=== PATIENT | male | born 1960 | race Caucasian/White ===

== ENCOUNTER → 2016-09-01 11:32 | Day surgery (SDC) | payer OTHER ==
--- NOTE | 2016-08-25 17:16 | HP ---
PREOPERATIVE HISTORY AND PHYSICAL: DATE OF ADMISSION/ SURGERY: 09/01/16 PROCEDURE: Right shoulder arthroscopic decompression and debridement, excision distal clavicle, possible tenotomy versus tenodesis. CHIEF COMPLAINT: Right shoulder pain. HISTORY OF PRESENT ILLNESS: Mr. Moncada is a 55-year-old right hand dominant male who presents to the clinic with right shoulder pain after a work-related injury in February. Since that time he has had ongoing right shoulder pain due to AC joint arthritis and impingement syndrome and biceps tendinitis. He has failed conservative measures and therefore agreed to undergo a right shoulder arthroscopic decompression, debridement, excision distal clavicle and possible tenotomy versus tenodesis. Thus, he will be seen on 09/01/16. PAST MEDICAL HISTORY: 1. Hypertension. 2. Hyperlipidemia. 3. Sleep apnea. 4. Gout. 5. Kidney stones. PAST SURGICAL HISTORY: Hernia repair and appendectomy. The patient denies prior complications with anesthesia. MEDICATIONS: 1. Aspirin 81 mg 1 by mouth daily. 2. Colchicine 0.6 mg 1 by mouth daily. 3. Multivitamin 1 by mouth daily. 4. Glucosamine and chondroitin 1500 complex, 2 by mouth every day. 5. Aleve 220 mg as needed. 6. New blood pressure medication, name unknown by patient. ALLERGIES: PENICILLIN. FAMILY HISTORY: Mom has a history of AMI. Denies family history of DVT or PE. SOCIAL HISTORY: He is . He denies tobacco use. He reports occasional alcohol use. He denies illegal drug use. He works in service management. REVIEW OF SYSTEMS: A 14-point review of systems was reviewed with the patient and positive for recent cold, pain, intermittent numbness and tingling in the right hand, otherwise negative. Denies chest pain, shortness of breath, history of bleeding disorder, history of DVT or PE. PHYSICAL EXAMINATION GENERAL: Well-developed, well-nourished 55-year-old male in no acute distress. VITAL SIGNS: Height 71.5, weight 280. Blood pressure 150/98, respiratory rate 16, temperature 98.5. BMI 38.5. HEENT: Normocephalic, atraumatic. PERRLA. Throat: Clear NECK: Supple. PULMONARY: Lungs clear to auscultation bilaterally. No wheezing, rhonchi or rales. CARDIO: Regular rate and rhythm. S1, S2. No murmurs, gallops or rubs. No edema. ABDOMEN: Positive bowel sounds. Soft and nontender. MUSCULOSKELETAL: Right upper extremity skin is intact. No erythema or warmth. Tenderness to palpation over the AC joint in the bicipital groove. Forward flexion to 140, abduction to 130, external rotation to 60, internal rotation to the posterior hip. Good strength to rotator cuff testing but with pain. Positive Neer, [place] and [place] and Speed's. +2 radial pulse. Sensation is intact to light touch distally. NEUROLOGIC: Alert and oriented x3. Cranial nerves grossly intact. Sensation intact to light touch distally. DIAGNOSTIC STUDIES: X-ray and MRI revealed no full thickness tear of the rotator cuff but he does have AC joint arthritis and evidence of biceps tendinitis filled with fluid in the groove and mild degenerative joint disease. IMPRESSION: Right shoulder AC joint arthritis, impingement syndrome and biceps tendinitis. PLAN: The patient is scheduled to undergo a right shoulder arthroscopic decompression and debridement, excision distal clavicle and possible tenotomy versus tenodesis with Dr. Goyal on 09/01/16. He is to return to the office 10 to 14 days postop for followup and suture removal. Prescription for Percocet will be used for postoperative pain management. NINO EWING [id number]/[facility] #: [id number] MTDJhonny
[~2016-09-01 11:32] MED LIST: Atracurium* 10 MG/ML 10 ML VIAL ONE; Buffered Lidocaine 1% SYRIN* 3 ML/SYR SYRINGE INTRADERM ONE; Bupivacaine 0.25% SDV* 30 ML ONE; Clindamycin 900 MG IVPREMIX(* 900 MG/50 ML SDV IV ONE; Dexamethasone IV* 4 MG/ML 1 ML (4 MG) ONE; Famotidine IV* 10 MG/ML 2 ML (20 mg) IV ONE; Famotidine IV* 10 MG/ML 2 ML (20 mg) ONE; HYDROmorphone* 1 MG/ML 1 ML SYR IV PRN; HYDROmorphone* 1 MG/ML 1 ML SYR ONE; KETAMINE HCL* 50 MG/ML 10 ML VIAL ONE; Ketorolac INJ* 30 MG/ML 1 ML VIAL ONE; Labetalol IV* 5 MG/ML 20 ML VIAL ONE; Lidocaine 2% PF* 5 ML VIAL ONE; Metoclopramide TAB* 10 MG ONE; Metoclopramide TAB* 10 MG PO ONE; Midazolam* 1 MG/ML 2 ML VIAL (2 MG) ONE; Midazolam* 1 MG/ML 5 ML VIAL (5 MG) ONE; Ondansetron INJ* 2 MG/ML VIAL IV PRN; Ondansetron INJ* 2 MG/ML VIAL ONE; Propofol* 10 MG/ML 20 ML BTL IV PUSH ONE; ROPIVACAINE 5 MG/ML 30 ML BTL (0.5%) ONE; fentaNYL* 50 MCG/ML 2 ML VIAL (100 MCG VIAL) IV PRN; fentaNYL* 50 MCG/ML 5 ML VIAL (250 MCG VIAL) ONE; methylPREDNISolone ACETATE 80* 80 MG/ML 1 ML VIAL ONE; oxyCODONE/Acetamin 5/325 MG* TAB PO PRN
[2016-09-01 19:33] VITALS: BP 148/84
--- NOTE | 2016-09-06 03:40 | OP ---
DATE OF OPERATION: 09/01/16 - [facility] DATE OF : 62 SURGEON: Bipin Goyal MD HOME HEALTH TRAVEL OT: NINO Nath ANESTHESIOLOGIST: Dr. Butler. ANESTHESIA: General with interscalene block. PRE-OP DIAGNOSES: Right shoulder impingement, AC joint arthritis, and biceps tendonitis. POST-OP DIAGNOSES: Right shoulder impingement, AC joint arthritis, and biceps tendonitis. OPERATIVE PROCEDURE: 1. Right shoulder arthroscopy with extensive glenohumeral debridement including biceps tenotomy and debridement of the labrum. 2. Subacromial decompression with acromioplasty. 3. Distal clavicle excision. 4. Depo-Medrol injection. COMPLICATIONS: None. ESTIMATED BLOOD LOSS: Minimal. INDICATIONS: Seven Hardy is a 56-year-old male who sustained a work-related injury to his right shoulder in February of 2016. He has failed conservative management. He has tried anti-inflammatories, an injection as well as rest and has persistent pain. His previous AC joint injection did not help enough with the pain. He has elected to proceed with operative management. Risks and benefits of surgery were discussed at length and including, but are not limited to bleeding, infection, damage to nerves, vessels, surrounding structures, wound nonhealing, persistent pain, need for further surgery, scarring, stiffness , incomplete relief of symptoms, risk of anesthesia, and risk of DVT. She has elected to proceed. DESCRIPTION OF PROCEDURE: The patient was greeted in the preoperative area by the attending surgeon. The correct extremity was marked, consent was confirmed. The patient then underwent interscalene block by the anesthesiologist, which he tolerated without difficulty. The patient was then taken back to the operating suite where he was placed supine position on the operating table. He then underwent general anesthesia and endotracheal intubation after which the patient was placed in the left lateral decubitus position with an axillary roll. All bony prominences were padded and he was supported with a peg board. His right arm was draped unsterile from the traction frame. The right shoulder was prepped and draped in the usual sterile fashion beginning with chlorhexidine scrub and alcohol wipe and the final prep with a ChloraPrep. After appropriate surgical pause indicating site, side, procedure, and administration of antibiotics, the standard posterolateral portal was made sharply with an 11 blade. The scope was introduced through the joint and the joint was examined. There was abundant erythematous hyperemic tissue apparent. The superior labrum had evidence of detachment. The biceps had tendinopathy as well as tendonitis and it was irritating undersurface of the rotator cuff. The anterior portal was made in an outside-in fashion. The shaver was brought in to debride the anterior posterior and superior labrum as well as some of the rotator cuff, which was probed and found to be quite thick. There were no high- grade tears. The biceps was then tenotomized using arthroscopic scissors. The inferior recess was intact. The anterior posterior labrum were intact. There were grade 1 changes of the glenoid in the humeral head. After the debridement was complete, attention was directed to the subacromial space. The scope was positioned in the subacromial space. The lateral portal was made in a outside-in fashion. The abundant bursa was then carefully removed using the shaving device. Once this was removed, the cup was visualized and found to be intact. The undersurface of the acromion was then prepared and skeletonized using the electrocautery device, which demonstrated a small to moderate spur. This was then debrided back using the 4-0 luc which helped to then identify where the AC joint was. From this lateral portal, the inferior spur was then debrided back to level of about 8 mm. Once the decompression and acromioplasty was complete, the attention was directed to distal clavicle. The luc was then placed to the anterior portal in line with the AC joint. This was first localized using an 18 gauge needle, then with direct arthroscopic observation and distal clavicle excision was done to remove approximately 8 mm of the bone from distal clavicle. Care was taken not to damage the CC ligaments. The clavicle was then manipulated and it was found no longer to pinch or impinge. All loose debris and tissue were removed from the subacromial space. An 18-gauge needle was then placed in the subacromial space under arthroscopic visualization. The portal sites were closed with 3-0 nylon and prior to dressings being placed, an 80 mg of Depo-Medrol and 5 cc of Marcaine were injected into the subacromial space. Sterile dressings were applied. A Cryo/Cuff and a regular sling. He was awoken from anesthesia and transferred to the PACU in stable condition. POSTOPERATIVE PLAN: He will be nonweightbearing. He will do range of motion as tolerated. He will be discharged with pain medication. DVT prophylaxis considered, but deferred due to no previous personal or family history. I will see the patient back in 10 to 14 days. [id number]/[facility] #: [id number] MTDD
== END | disposition home or self-care (01) ==
LOC: OR 11:32
PROVIDERS: ATTEND Orthopaedic Surgery
DX: M75.41 Impingement syndrome of right shoulder (principal); M19.011 Primary osteoarthritis, right shoulder; M75.21 Bicipital tendinitis, right shoulder; Z79.82 Long term (current) use of aspirin; Z88.0 Allergy status to penicillin; I10 Essential (primary) hypertension; G47.33 Obstructive sleep apnea (adult) (pediatric); E78.5 Hyperlipidemia, unspecified; M10.9 Gout, unspecified; G89.29 Other chronic pain; S49.91XS Unspecified injury of right shoulder and upper arm, sequela; X58.XXXS Exposure to other specified factors, sequela; Y92.89 Other specified places as the place of occurrence of the external cause; Y99.0 Civilian activity done for income or pay
CPT/HCPCS: A9270-GY; J1040; J1100; J1170; J1885; J2250; J2405; J2704; J2795; J3010

== ENCOUNTER 2017-06-20 14:03 | Emergency (ER) | payer BC, OTHER ==
--- NOTE | 2017-06-20 16:16 | UC ---
Ear Complaint HPI - HPI Summary HPI Summary: 56 y/o male presents to the urgent care c/o Left ear plugged with cerumen, decrease hearing for the past for the past weeks. Pt reports He developed a neck pain around 1 week ago and then radiated to his left shoulder and arm. He was unable to raise left arm due to pain, He went to PCP today and Dx with Neck arthritis and he advised him to go to DR Bartlett's office or the Urgent care to have ear irrigation to r/o any ear infection. Pt denies pain, fever, cough, SOB , chest pain, N/V/D, abdominal pain or dizziness. - History of Current Complaint Stated Complaint: EAR COMPLAINT Time Seen by Provider: 06/20/17 16:15 Hx Obtained From: Patient Onset/Duration: Gradual Onset, Lasting Weeks - 2 weeks, Still Present, Worse Since - yesterday Severity Initially: Mild Severity Currently: Moderate Pain Intensity: 0 Pain Scale Used: 0-10 Numeric Aggravating Factors: Nothing Alleviating Factors: Nothing Associated Signs/Symptoms: Positive: Hearing Loss - Allergies/Home Medications Allergies/Adverse Reactions: Allergies Allergy/AdvReac Type Severity Reaction Status Date / Time Penicillins Allergy Unknown Unknown Verified 06/20/17 16:21 Reaction Details Home Medications: Home Medications Allopurinol TAB* [Zyloprim 100 MG TAB*] 06/20/17 [History] PMH/Surg Hx/FS Hx/Imm Hx Previously Healthy: Yes Endocrine History: Dyslipidemia - diet control Other Endocrine History: GOUT Cardiovascular History: Hypertension - Surgical History Surgical History: Yes Surgery Procedure, Year, and Place: APPY. HERNIA REPAIR. RIGHT SHOULDER REPAIR 08/2016 - Family History Known Family History: Positive: Hypertension, Diabetes - Social History Occupation: Employed Full-time Lives: With Family Alcohol Use: Occasionally Substance Use Type: None Smoking Status (MU): Never Smoked Tobacco Review of Systems Constitutional: Negative Skin: Negative Eyes: Negative ENT: Ear Ache - left ear plugged with cerumen Respiratory: Negative Cardiovascular: Negative Gastrointestinal: Negative Genitourinary: Negative Motor: Negative Neurovascular: Negative Musculoskeletal: Other: - left arm pain with neck pain Neurological: Negative Psychological: Negative Is Patient Immunocompromised?: No All Other Systems Reviewed And Are Negative: Yes Physical Exam Triage Information Reviewed: Yes - Additional Comments Vital signs: reviewed General: weel developed, well nourished male sitting in the examining table w/o any apparent distress. Skin: [place], warm and dry, no evidence of atopic dermatitis, psoriasis, positive erythemaous papule with yellowish discharge in the back of scalp, tender to palpation HEENT: -Head: atraumatic, non tender; no scalp dermatitis. -Eyes: sclera and conjunctiva clear, PERRLA, EOMI -Ears: no pre- or postauricular lymphadenopathy or erythema; B/L ear impacted with cerumen unable to visualize TM's -Nose/Face: erythematous and edematous nasal mucosa with clear rhinorrhea, no frontal or maxillary sinus tender to palpation. -Mouth/Throat: Mucous membrane moist, posterior pharynx clear, no erythema or exudates. Neck: supple, FROM, nontender, no lymphadenopathy, no meningismus. Chest: Clear to auscultation, normal breath sounds Abd: soft, Bowel sounds active, Nontender. Back: no spinal or CVAT Neuro: A&O x4, GCS 15, no focal neuro deficits, normal behavior for age. Ear Complaint Course/Dx - Course Course Of Treatment: 56 y/o male presents to the urgent care c/o Left ear plugged with cerumen, decrease hearing for the past for the past weeks. Pt reports He developed a neck pain around 1 week ago and then radiated to his left shoulder and arm. He was unable to raise left arm due to pain, He went to PCP today and Dx with Neck arthritis and he advised him to go to DR Bartlett's office or the Urgent care to have ear irrigation to r/o any ear infection. Pt denies pain, fever, cough, SOB, chest pain, N/V/D, abdominal pain or dizziness. Hx obtained. Pt with B/L external ear impacted with cerumen. Ear irrigation performed by the Nurse. Pt tolerated wll procedure and both ear completely cleared. Lf TM injectec with erythema. Pt PCN allergic. Pt Rx Z-sayda PO. Advised to f/u with PCP if not improvement of symptoms. Pt with PMHX of HTN and Pt's BP is elevated today advised to decrease salt in diet, monitor BP and f/u with PCP for further management. Pt with a small erythematous papaule with yellowish dicharge in the back of scalp. Pt Rx Bacitracin ointment to alleviate symptoms. Pt explained D/C instructions. Pt understood and agreed with plan of care. - Differential Dx/Diagnosis Differential Diagnosis/HQI/PQRI: Barotrauma, Cerumen Impaction, Otitis Externa, Otitis Media, Perforated TM Provider Diagnoses: 1- B/L cerumen impaction. 2- Left otitis media. 3- Uncontrolled HTN. 4- folliculitis Discharge - Discharge Plan Condition: Stable Disposition: HOME Prescriptions: Azithromyxin SAYDA (NF) [Z-Sayda (Zithromax) 250 mg tabs #6] 2 tab PO .TODAY, THEN 1 DAILY #6 tab Bacitracin OINTMENT* 1 applic TOPICAL TID #1 tube Patient Education Materials: Cerumen Impaction (ED), Otitis Media (ED), Folliculitis (ED), Low Sodium Diet (ED) Referrals: Davis Panchal MD [Primary Care Provider] - If Needed Additional Instructions: 1-Please take antibiotic as directed for your Otitis Media 1-Please apply Bacitracin topical on the affected area as directed. 2-If symptoms do not improve or worsen please f/u with your PCP or return to the urgent care for further evaluation and treatment. 3-Your BP is elevated today. please decrease salt in your diet, monitor BP and if it continues to be elevated please f/u with your PCP for further management
[2017-06-20 16:21] VITALS: BP 159/97
== END 2017-06-20 17:34 | disposition home or self-care (01) ==
LOC: UCCORT 14:03
DX: H61.23 Impacted cerumen, bilateral (principal); H66.92 Otitis media, unspecified, left ear; L73.9 Follicular disorder, unspecified; I10 Essential (primary) hypertension; E78.5 Hyperlipidemia, unspecified; M10.9 Gout, unspecified; Z88.0 Allergy status to penicillin
CPT/HCPCS: 99212; G0463

== ENCOUNTER 2018-04-03 20:02 | Emergency (ER) | payer BC ==
[2018-04-03 20:47] VITALS: BP 168/99
--- NOTE | 2018-04-03 20:51 | ED ---
Abdominal Pain/Male - HPI Summary HPI Summary: 57 yr old male with almost two months of pain in the right lower chest, and back and also RUQ abdomen, progressively worse and worse with laying down, bending over, deep breaths. He has some nausea. Denies SOB. Denies dizziness. He has a history of HTN. - History of Current Complaint Stated Complaint: RIGHT SIDE CHEST/BACK PAIN X 1 MONTH Time Seen by Provider: 04/03/18 20:36 - Allergies/Home Medications Allergies/Adverse Reactions: Allergies Allergy/AdvReac Type Severity Reaction Status Date / Time Penicillins Allergy Unknown Verified 04/03/18 20:35 Reaction Details PMH/Surg Hx/FS Hx/Imm Hx Endocrine/Hematology History: Denies: Hx Diabetes Cardiovascular History: Reports: Hx Hypertension - controls with medication Denies: Hx Pacemaker/ICD Respiratory History: Reports: Hx Sleep Apnea History: Reports: Hx Kidney Stones - last summer 2015 Denies: Hx Renal Disease Musculoskeletal History: Reports: Hx Arthritis - joints, OTC pain relief PRN Sensory History: Reports: Hx Contacts or Glasses - reading only Denies: Hx Hearing Aid Opthamlomology History: Reports: Hx Contacts or Glasses - reading only Psychiatric History: Denies: Hx Panic Disorder - Surgical History Surgery Procedure, Year, and Place: APPY. HERNIA REPAIR. RIGHT SHOULDER REPAIR 08/2016 Hx Anesthesia Reactions: No Infectious Disease History: Denies: History Other Infectious Disease, Traveled Outside the [place] in Last 30 Days - Family History Known Family History: Positive: Hypertension, Diabetes - Social History Occupation: Employed Full-time Alcohol Use: Occasionally Substance Use Type: Reports: None Smoking Status (MU): Never Smoked Tobacco Review of Systems Constitutional: Negative Positive: Other - pain right lower chest and right upper abdomen, and flank. Negative: Shortness Of Breath Positive: Abdominal Pain - RUQ All Other Systems Reviewed And Are Negative: Yes Physical Exam Triage Information Reviewed: Yes Vital Signs Reviewed: Yes Appearance: Positive: Well-Appearing, No Pain Distress Skin: Positive: Skin Color Reflects Adequate Perfusion Head/Face: Positive: Normal Head/Face Inspection Eyes: Positive: EOMI ENT: Positive: Normal ENT inspection Neck: Positive: Nontender Respiratory/Lung Sounds: Positive: Clear to Auscultation, Breath Sounds Present Cardiovascular: Positive: RRR. Negative: Murmur Abdomen Description: Positive: Other: - tender RUQ abdomen. Musculoskeletal: Positive: Strength/ROM Intact Neurological: Positive: Sensory/Motor Intact, Alert, Oriented to Person Place, Time, CN Intact II-III Psychiatric: Positive: Normal - [place] Coma Scale Best Eye Response: 4 - Spontaneous Best Motor Response: 6 - Obeys Commands Best Verbal Response: 5 - Oriented Coma Scale Total: 15 Diagnostics - Laboratory Lab Statement: Any lab studies that have been ordered have been reviewed, and results considered in the medical decision making process. - Radiology chest pa lat Xray Interpretation: No Acute Changes Radiology Interpretation Completed By: ED Physician - EKG 04/03/18 Cardiac Rate: NL EKG Rhythm: Sinus Rhythm ST Segment: Normal Ectopy: None Abdominal Pain Fem Course/Dx - Course Course Of Treatment: 57 yr old male with RUQ, RL chest pain, and back pain, progressively worse. TEMP is 99.9 here. - Diagnoses Provider Diagnoses: Upper abdominal pain, Right upper quadrant abdominal pain, Right-sided chest wall pain Discharge - Sign-Out/Discharge Documenting (check all that apply): Patient Departure All imaging exams completed and their final reports reviewed: No Studies - Discharge Plan Condition: Good Disposition: HOME-RECOMMEND TO ED Patient Education Materials: Flank Pain (ED), Acute Abdominal Pain (DC), Pleurisy (ED) Referrals: Davis Panchal MD [Primary Care Provider] - Additional Instructions: go to the ER immediately upon leaving here for further work up. - Billing Disposition and Condition Condition: GOOD Disposition: Home-Recommend to ED
--- NOTE | 2018-04-04 08:47 | RAD ---
Indication: Chest pain. 2 views of the chest including dual energy PA views are reviewed and compared to previous exam dated July 01, 2014. No mediastinal shift is noted. Heart is of normal size and configuration. Lung negron are clear. No evidence of alveolar consolidation is noted. IMPRESSION: No active cardiopulmonary disease is noted. R1
== END 2018-04-03 22:02 | disposition home health service (06) ==
LOC: UCCORT 20:02
DX: R10.11 Right upper quadrant pain (principal); R07.89 Other chest pain; I10 Essential (primary) hypertension; Z88.0 Allergy status to penicillin
CPT/HCPCS: 71046; 93005; 99212; G0463